=== PATIENT | female | born 1975 | race Caucasian/White ===

== ENCOUNTER 2017-02-17 16:07 | Emergency (ER) | payer SELFPAY ==
[2017-02-17 16:17] VITALS: BP 115/68
--- NOTE | 2017-02-17 16:38 | ER Document Report ---
HPI - HPI Patient complains to provider of: left lower rib swelling Onset: This morning Onset/Duration: Sudden Pain Level: 3 Context: 41-year-old female woke up this morning with swelling to her left lower rib area. She has had a cough for 1 week. No fever. No abdominal pain, n/v/d. No rash Associated Symptoms: None Exacerbated by: Movement, Coughing Relieved by: Denies Similar symptoms previously: No Recently seen / treated by doctor: No - ROS ROS below otherwise negative: Yes Systems Reviewed and Negative: Yes All other systems reviewed and negative Past Medical History - General Information source: Patient - Social History Smoking Status: Current Every Day Smoker Frequency of alcohol use: None Drug Abuse: None Lives with: Spouse/Significant other Family History: Reviewed & Not Pertinent - Medical History Medical History: Negative Surgical Hx: Negative Vertical Provider Document - CONSTITUTIONAL Agree With Documented VS: Yes Exam Limitations: No Limitations General Appearance: No Apparent Distress - INFECTION CONTROL TRAVEL OUTSIDE OF THE [place] IN LAST 30 DAYS: No - HEENT HEENT: Normal ENT Exam, Normocephalic - NECK Neck: Supple. negative: Lymphadenopathy-Left, Lymphadenopathy-Right - RESPIRATORY Respiratory: Breath Sounds Normal, No Respiratory Distress O2 Sat by Pulse Oximetry: 100 Notes: tender left lower anterolateral rib, no mass, no rash, lungs clear - CARDIOVASCULAR Cardiovascular: Regular Rate, Regular Rhythm - GI/ABDOMEN Gastrointestinal: Abdomen Soft, Abdomen Non-Tender, No Organomegaly, Normal Bowel Sounds - MUSCULOSKELETAL/EXTREMETIES Musculoskeletal/Extremeties: MAEW, FROM - NEURO Level of Consciousness: Awake, Alert - DERM Integumentary: Warm, Dry, No Rash Course - Re-evaluation Re-evalutation: 02/17/17 17:55 Chest x-ray is negative - Vital Signs Vital signs: Temp Pulse Resp BP Pulse Ox 98.8 F 86 16 115/68 100 02/17/17 16:13 02/17/17 16:13 02/17/17 16:13 02/17/17 16:13 02/17/17 16:13 Discharge - Discharge Clinical Impression: lower left chest wall tenderness Condition: Good Disposition: HOME, SELF-CARE Instructions: Anti-Inflammatory Medication ([facility]), Chest Wall Pain ([facility]), Family Physicians / Practices, Warm Packs ([facility]) Additional Instructions: warm compress motrin for pain copy of negative chest xray stop smoking to er if worsening symptoms Prescriptions: Ibuprofen [Motrin 800 mg Tablet] 800 mg PO Q8HP PRN #30 tablet PRN Reason:
--- NOTE | 2017-02-17 17:07 | RADIOLOGY REPORT (SQ) ---
EXAM DESCRIPTION: CHEST PA/LAT COMPLETED DATE/TIME: 02/17/2017 5:00 pm REASON FOR STUDY: lower left rib pain, cough for 1 week COMPARISON: None. EXAM PARAMETERS: NUMBER OF VIEWS: two views TECHNIQUE: Digital Frontal and Lateral radiographic views of the chest acquired. RADIATION DOSE: NA LIMITATIONS: none FINDINGS: LUNGS AND PLEURA: No opacities, masses or pneumothorax. No pleural effusion. MEDIASTINUM AND HILAR STRUCTURES: No masses or contour abnormalities. HEART AND VASCULAR STRUCTURES: Heart normal size. No evidence for failure. BONES: No acute findings. HARDWARE: Hardware in the cervical spine. OTHER: No other significant finding. IMPRESSION: NO SIGNIFICANT RADIOGRAPHIC FINDING IN THE CHEST. TECHNICAL DOCUMENTATION: JOB ID: [id number] [employer]- All Rights Reserved
[2017-02-17] MEDS ORDERED: ACETAMINOPHEN 325 MG TABLET PO ONE (17:55)
[2017-02-17] MEDS ORDERED: IBUPROFEN 800 MG TABLET PO ONE (17:55)
== END 2017-02-17 18:38 | disposition home or self-care (01) ==
LOC: ER 16:07
DX: R07.89 Other chest pain (principal); R07.81 Pleurodynia; R05 Cough
CPT/HCPCS: 71020; 99283